=== PATIENT | female | born 1985 | race Caucasian/White ===

== ENCOUNTER 2018-06-01 06:03 | Emergency (ER) | payer OTHER ==
[2018-06-01] MEDS ORDERED: Penicillin V Potassium 500 MG Tab PO ONE (06:39)
--- NOTE | 2018-06-01 06:45 | EDM.PDOC ---
ED HPI GENERAL MEDICAL PROBLEM - General Chief Complaint: ENT Problem Stated Complaint: RIGHT SIDE OF FACE SWOLLEN GLANDS AND HARD Time Seen by Provider: 06/01/18 06:16 Source of Information: Reports: Patient, RN Notes Reviewed History Limitations: Reports: No Limitations - History of Present Illness INITIAL COMMENTS - FREE TEXT/NARRATIVE: The patient states that she developed swelling to her right mandible Friday afternoon, 05/30/2018. She developed lower right dental pain and a right earache that evening. On 05/31/2018, she states that she took a left-over anti- inflammatory, however, it was likely a steroid, as she is allergic to NSAIDs. Last night she states that her pain got worse. She tried Orajel, without relief. At 05:00 this morning, the patient states that the right side of her face was swollen. No recent fever. No prior similar symptoms. The patient denies dental pain when chewing. The patient does not have a PCP. right jaw Pain Score (Numeric/FACES): 5 - Related Data Allergies Allergy/AdvReac Type Severity Reaction Status Date / Time clindamycin Allergy Other Verified 06/01/18 06:15 codeine Allergy Other Verified 06/01/18 06:15 ibuprofen Allergy Other Verified 06/01/18 06:15 morphine Allergy Other Verified 06/01/18 06:15 naproxen Allergy Other Verified 06/01/18 06:15 Home Meds: Home Meds Pegfilgrastim [Neulasta] 6 mg SQ ASDIRECTED 06/01/18 [History] Penicillin V Potassium 1 tab PO Q6HR #40 tab 06/01/18 [Rx] Past Medical History Hematologic History: Reports: Other (See Below) (Cyclic neutropenia) - Past Surgical History Head Surgeries/Procedures: Reports: Other (See Below) (Left orbit reconstruction following trauma) HEENT Surgical History: Reports: Oral Surgery (wisdom teeth extraction), Tonsillectomy Musculoskeletal Surgical History: Reports: Arthroscopic Knee (left), Other (See Below) (Right leg fasciotomy for chronic compartment syndrome) Social & Family History - Family History Family Medical History: Noncontributory - Tobacco Use Smoking Status *Q: Current Some Day Smoker Years of Tobacco use: 10 Packs/Tins Daily: 0.1 - Caffeine Use Caffeine Use: Reports: Coffee - Alcohol Use Alcohol Use History: Yes Alcohol Use Frequency: Socially - Recreational Drug Use Recreational Drug Use: No - Living Situation & Occupation Living situation: Reports: , with Spouse Occupation: Employed ([employer]) ED ROS ENT - Review of Systems Review Of Systems: ROS reveals no pertinent complaints other than HPI. ED EXAM, ENT - Physical Exam Exam: See Below Exam Limited By: No Limitations General Appearance: Alert, WD/WN, No Apparent Distress Eye Exam: Bilateral Eye: EOMI, Normal Inspection Ears: Normal External Exam, Normal Canal, Hearing Grossly Normal, Normal TMs Nose: Normal Inspection, Normal Mucousa, No Blood Mouth/Throat: Normal Lips, Normal Oropharynx, Other (The posterior half of tooth #30 is absent, with extensive decay to the gingiva, and associated gingival swelling without pointing.) Head: Atraumatic, Facial Swelling (Lateral right mandible) Neck: Normal Inspection, Supple, Non-Tender, Full Range of Motion. No: Lymphadenopathy (L), Lymphadenopathy (R) Course - Vital Signs Last Recorded V/S: Last Vital Signs Temp 36.6 C 06/01/18 06:05 Pulse 92 06/01/18 06:05 Resp 18 06/01/18 06:05 BP 131/97 H 06/01/18 06:05 Pulse Ox 98 06/01/18 06:05 - Orders/Labs/Meds Orders: Active Orders 24 hr Category Date Time Status Penicillin V Potassium [Veetids] Med 06/01/18 06:39 Once 500 mg PO ONETIME ONE - Re-Assessments/Exams Free Text/Narrative Re-Assessment/Exam: 06/01/18 06:40 The swelling noted to the lateral aspect of the patient's right mandible appears to be due to an infection of tooth #30. The patient will receive a single dose of penicillin VK 500 mg here in the ED, and I will prescribe a ten- day course. The patient will be given a list of local dentists, and I encouraged her to follow-up with one YANN. The patient requested an anti-inflammatory medication, however, she is allergic to NSAIDs. I explained that the only other anti-inflammatory would be a steroid , and given that this is an infection, steroids would be contraindicated. Departure - Departure Time of Disposition: 06:41 Disposition: Home, Self-Care 01 Condition: Fair Clinical Impression: Dental infection - Discharge Information *PRESCRIPTION DRUG MONITORING PROGRAM REVIEWED*: Not Applicable *COPY OF PRESCRIPTION DRUG MONITORING REPORT IN PATIENT ALY: Not Applicable Referrals: PCP,None [Primary Care Provider] - Additional Instructions: You were seen in the emergency room for pain and swelling of your right mandible. On examination, you appear to have an infection of tooth #30. You have been started on the antibiotic penicillin. A prescription for penicillin has been sent to the [facility], [address] [place] [address], located just south and [place] [address] from [facility]. Take one tablet of penicillin every 6 hours, starting around noon today, as prescribed. Finish the entire prescription unless told otherwise by a dentist. Take [id number] Tylenol as needed for discomfort. A list of local dentists has been provided to you. Please follow-up with a dentist as soon as an appointment can be made. If any other problems, please do not hesitate to return to the ER. - My Orders Last 24 Hours: My Active Orders 06/01/18 06:39 Penicillin V Potassium [Veetids] 500 mg PO ONETIME ONE - Assessment/Plan Last 24 Hours: My Active Orders 06/01/18 06:39 Penicillin V Potassium [Veetids] 500 mg PO ONETIME ONE
== END 2018-06-01 06:50 | disposition home or self-care (01) ==
LOC: JD.ED 06:03
DX: K04.7 Periapical abscess without sinus (principal); K06.8 Other specified disorders of gingiva and edentulous alveolar ridge; F17.210 Nicotine dependence, cigarettes, uncomplicated; Z88.5 Allergy status to narcotic agent; Z88.1 Allergy status to other antibiotic agents; Z88.6 Allergy status to analgesic agent; Z88.8 Allergy status to other drugs, medicaments and biological substances
CPT/HCPCS: 99283; A9270